=== PATIENT | female | born 1950 | race Caucasian/White ===

== ENCOUNTER 2020-04-26 16:51 | Emergency (ER) | payer BC, MEDICARE ==
--- NOTE | 2020-04-26 17:19 | ER Document Report ---
ED Medical Screen (RME) - General Chief Complaint: Arm Injury Stated Complaint: FALL/LEFT ARM PAIN Time Seen by Provider: 04/26/20 17:07 Mode of Arrival: Wheelchair Information source: Patient Notes: 69-year-old female presents to ED for complaint of pain to the left upper and lower arm and elbow since she fell about 2:00. She states she was trying to walk inside to her daughter's house when she tripped over the threshold of the house landing on her arm. States if she keeps her arm still the pain is about a 2/5 but at times it has a spasm that is a 4/5. She states it is throbbing. Tico samuel is alert oriented respirations regular nonlabored speaking in full sentences. She has no tenderness to palpation to her shoulder. She states it hurts her upper arm elbow and lower arm when she moves her shoulder but there is no tenderness to the shoulder. She does have pain with any movement to the arm. Constitutional: Negative for fever. HENT: Negative for sore throat. Eyes: Negative for visual changes. Cardiovascular: Negative for chest pain. Respiratory: Negative for shortness of breath. Gastrointestinal: Negative for abdominal pain, vomiting or diarrhea. Genitourinary: Negative for dysuria. Musculoskeletal: Pain to the left upper and lower arm as well as the left elbow. Pain with any movement to this arm. No pain to the shoulder Skin: Negative for rash. Neurological: Negative for headaches, weakness or numbness. 10 point ROS negative except as marked above and in HPI. PHYSICAL EXAMINATION: GENERAL: Well-appearing, well-nourished and in no acute distress. HEAD: Atraumatic, normocephalic. EYES: Pupils equal round extraocular movements intact, conjunctiva are normal. ENT: Nares patent NECK: Normal range of motion LUNGS: No respiratory distress Musculoskeletal: Pain with any movement to the left elbow or arm. Has tenderness to the upper and lower arm as well as the elbow. NEUROLOGICAL: Normal speech, normal gait. PSYCH: Normal mood, normal affect. SKIN: Warm, Dry, normal turgor, no rashes or lesions noted. - HPI Onset: This afternoon Onset/Duration: Sudden, Persistent Quality of pain: Throbbing Severity: Moderate Pain Level: 2 - 2 at this moment goes up to 4 times Exacerbated by: Movement Relieved by: Denies Similar symptoms previously: No Recently seen / treated by doctor: No - Related Data Smoking: Non-smoker Frequency of alcohol use: None Drug Abuse: None Allergies/Adverse Reactions: codeine Allergy (Verified 04/26/20 17:12) morphine Allergy (Verified 04/26/20 17:12) Past Medical History - General Information source: Patient - Social History Chew tobacco use (# tins/day): No Frequency of alcohol use: None Drug Abuse: None - Past Medical History Cardiac Medical History: Reports: Hx Hypertension Pulmonary Medical History: Reports: None EENT Medical History: Reports: None Neurological Medical History: Reports: None Endocrine Medical History: Reports: None Renal/ Medical History: Reports: None Malignancy Medical History: Reports: Hx Breast Cancer - With neuropathy right GI Medical History: Reports: None Musculoskeltal Medical History: Reports Hx Arthritis - Rheumatoid, Reports Hx Musculoskeletal Trauma Skin Medical History: Reports None Psychiatric Medical History: Reports: None Traumatic Medical History: Reports: Hx Fractures - Wrist Infectious Medical History: Reports: None Past Surgical History: Reports: Hx Breast Surgery - Right mastectomy, Hx Hysterectomy - Immunizations Immunizations up to date: Yes Physical Exam - Vital signs Vitals: Temp Pulse Resp BP Pulse Ox 98.2 F 67 16 171/85 H 97 04/26/20 16:58 04/26/20 16:58 04/26/20 16:58 04/26/20 16:58 04/26/20 16:58 Course - Vital Signs Vital signs: Temp Pulse Resp BP Pulse Ox 98.2 F 67 16 171/85 H 97 04/26/20 16:58 04/26/20 16:58 04/26/20 16:58 04/26/20 16:58 04/26/20 16:58
[2020-04-26] MEDS ORDERED: HYDROMORPHONE HCL INJ/PF 2 MG/ML AMPULE IV ONE (17:50)
[2020-04-26] MEDS ORDERED: ONDANSETRON HCL INJ/PF 4 MG/2 ML SDV IV ONE (17:50)
--- NOTE | 2020-04-26 18:26 | ER Document Report ---
ED Fall - General Chief Complaint: Arm Injury Stated Complaint: FALL/LEFT ARM PAIN Time Seen by Provider: 04/26/20 17:07 Mode of Arrival: Ambulatory Information source: Patient Notes: This 69-year-old woman presents to the emergency department with a history of injury to the left upper arm. Apparently she was entering the doorway when she tripped and fell forward onto the left arm. She denies head injury or other associated injuries. Patient is here visiting a friend from [place] and has a allergy to codeine and morphine. He has a history of hypertension she of diabetes mellitus. - Related data Allergies/Adverse Reactions: codeine Allergy (Verified 04/26/20 17:12) morphine Allergy (Verified 04/26/20 17:12) Past Medical History - General Information source: Patient - Social History Smoking Status: Unknown if Ever Smoked Chew tobacco use (# tins/day): No Frequency of alcohol use: None Drug Abuse: None Family History: Reviewed & Not Pertinent Patient has homicidal ideation: No - Past Medical History Cardiac Medical History: Reports: Hx Hypertension Pulmonary Medical History: Reports: None EENT Medical History: Reports: None Neurological Medical History: Reports: None Endocrine Medical History: Reports: None Renal/ Medical History: Reports: None Malignancy Medical History: Reports: Hx Breast Cancer - With neuropathy right GI Medical History: Reports: None Musculoskeletal Medical History: Reports Hx Arthritis - Rheumatoid, Reports Hx Musculoskeletal Trauma Skin Medical History: Reports None Psychiatric Medical History: Reports: None Traumatic Medical History: Reports: Hx Fractures - Wrist Infectious Medical History: Reports: None Past Surgical History: Reports: Hx Breast Surgery - Right mastectomy, Hx Hysterectomy - Immunizations Immunizations up to date: Yes Review of Systems - Review of Systems Notes: Constitutional: Negative for fever. HENT: Negative for sore throat. Eyes: Negative for visual changes. Cardiovascular: Negative for chest pain. Respiratory: Negative for shortness of breath. Gastrointestinal: Negative for abdominal pain, vomiting or diarrhea. Genitourinary: Negative for dysuria. Musculoskeletal: + Left arm pain, + left arm deformity Skin: Negative for rash. Neurological: Negative for headaches, weakness or numbness. 10 point ROS negative except as marked above and in HPI. Physical Exam - Vital signs Vitals: Temp Pulse Resp BP Pulse Ox 98.2 F 67 16 171/85 H 97 04/26/20 16:58 04/26/20 16:58 04/26/20 16:58 04/26/20 16:58 04/26/20 16:58 Course - Re-evaluation Re-evalutation: 04/26/20 18:58 I discussed the patient with the orthopedist on-call Dr. Ponce, he has suggested a long arm splint and placed in a sling. I have explained the patient is hoping to go back to [place] for orthopedic care. Dr. Ponce states that it is okay to wait for a week or so. Talk with the patient and explained to her that we have placed her in a splint and sling and she will be given prescriptions for pain medications and that she can follow-up with her orthopedist as an outpatient. - Vital Signs Vital signs: Temp Pulse Resp BP Pulse Ox 98.1 F 83 12 146/92 H 100 04/26/20 20:27 04/26/20 20:27 04/26/20 20:27 04/26/20 20:27 04/26/20 20:27 - Diagnostic Test Radiology reviewed: Image reviewed, Reports reviewed Radiology results interpreted by me: 04/26/20 18:57 Elbow X-Ray 04/26/20 17:14 IMPRESSION: Acute spiral fracture through the distal humeral metaphysis. Associated soft tissue swelling. Forearm X-Ray 04/26/20 17:14 IMPRESSION: Acute spiral fracture through the distal humeral metaphysis. Associated soft tissue swelling. Humerus X-Ray 04/26/20 17:14 IMPRESSION: Acute spiral fracture through the distal humeral metaphysis. Associated soft tissue swelling. Procedures - Immobilization Left Upper Arm Time completed: 19:40 Pre-Proc Neuro Vasc Exam: Normal Immobilizer type: Long arm posterior Performed by: Provider, Other - Medical Assistants Post-Proc Neuro Vasc Exam: Normal Alignment checked and good: No Discharge - Discharge Clinical Impression: Fracture of humerus, distal, left, closed Qualifiers: Encounter type: initial encounter Fracture morphology: unspecified fracture morphology Qualified Code(s): S42.402A - Unspecified fracture of lower end of left humerus, initial encounter for closed fracture Condition: Good Disposition: HOME, SELF-CARE Additional Instructions: You are seen in the emergency department with a fracture to the left upper arm. You are placed in a sling and splint. Please leave the sling and splint in place. You may use the Scheller for pain. Please begin a stool softener such that you do not get constipation related to the pain medication. Please contact your orthopedist regarding the fracture and plan regarding repair. You may supplement ibuprofen with the pain medication for pain control as needed. If your symptoms are worsening or if you have other concerns you may return to the emergency department for further evaluation and treatment HOME CARE INSTRUCTIONS & INFORMATION: Thank you for choosing us for your medical needs. We hope you're satisfied with the care you received. After you leave, you must properly care for your problem and, at the same time, observe its progress. Any condition can change. Some illnesses can change rapidly over hours or days. If your condition worsens, return to the Emergency Department or see your physician promptly. ABOUT YOUR X-RAYS AND EKG'S: If you had an EKG or X-rays taken, they have been read by the Emergency Physician. The X-rays and EKG's will also be read by a Radiologist or Stock Turner within 24 hours. If discrepancies are noted, you w ill be notified by telephone. Please be certain the ED has a correct telephone number & address where you can be reached. Also, realize that some fractures or abnormalities do not show up on initial X-rays. If your symptoms continue, see your physician. ABOUT YOUR LABORATORY TEST: If you had laboratory tests, the results have been reviewed by the Emergency Physician. Some test results (for example cultures) may not be available for several days. You will be contacted if any test result shows you need additional treatment. Please be certain the ED has a correct telephone number and address where you can be reached. ABOUT YOUR MEDICATIONS: You will receive instructions on how to take your medicine on the prescription label you receive. Additional information may be provided by the Pharmacy. If you have questions afterwards, call the ED for clarification or further instructions. Some prescribed medications may cause drowsiness. Do not perform tasks such as driving a car or operating machinery without consulting your Pharmacist. If you feel you need a refill of pain medication, your condition will need re-evaluation. Please do not call for a refill of any medication. ABOUT YOUR SIGNATURE: Signature of this document acknowledges to followin. Understanding that you received emergency treatment and that you may be released before al medical problems are known or treated. Please be certain the ED has a correct phone number & address where you can be reached. 2. Acknowledgement that you will arrange for follow-up care as recommended. 3. Authorization for the Emergency Physician to provide information to your follow-up Physician in order to maximize your care. AT ANY TIME, IF YOUR SYMPTOMS CHANGE SIGNIFICANTLY OR WORSEN OR YOU DEVELOP NEW SYMPTOMS, RETURN TO THE EMERGENCY DEPARTMENT IMMEDIATELY FOR RE-EVALUATION. OUR GOAL IS TO PROVIDE EXCELLENT MEDICAL CARE! WE HOPE THAT WE HAVE MET YOUR EXPECTATIONS DURING YOUR EMERGENCY DEPARTMENT VISIT AND THAT YOU FEEL YOU HAVE RECEIVED EXCELLENT CARE! Prescriptions: Oxycodone HCl/Acetaminophen [Percocet 5-325 mg Tablet] 1 tab PO Q4H PRN #15 tablet PRN Reason: Ondansetron [Zofran Odt 4 mg Tablet] 1 - 2 tab PO Q4H PRN #15 tab.rapdis PRN Reason: For Nausea/Vomiting
--- NOTE | 2020-04-26 18:36 | RADIOLOGY REPORT (SQ) ---
EXAM DESCRIPTION: FOREARM LEFT; HUMERUS LEFT; ELBOW LEFT OVER 2 VIEWS COMPLETED DATE/TIME: 04/26/2020 5:09 pm REASON FOR STUDY: Fall pain injury pain increases with movement COMPARISON: None. NUMBER OF VIEWS: 8 views TECHNIQUE: AP and lateral views of the humerus, AP and lateral view of the left forearm, and AP, lat eral and oblique views of the left elbow. LIMITATIONS: None. FINDINGS: MINERALIZATION: Normal. BONES: There is an acute spiral fracture through the distal humeral metaphysis with mild displacement approximately 1 cm. Mild overriding of the fracture fragments. No involvement of the articular deepthi face. Normal elbow joint alignment. Proximal radius and ulna are intact. Normal glenohumeral joint alignment. SOFT TISSUES: Soft tissue swelling at the mid humerus. OTHER: No other significant finding. IMPRESSION: Acute spiral fracture through the distal humeral metaphysis. Associated soft tissue swe lling. TECHNICAL DOCUMENTATION: JOB ID: [id number] 2010 [employer]- All Rights Reserved Reading location - IP/workstation name: [email or web address]
--- NOTE | 2020-04-26 18:36 | RADIOLOGY REPORT (SQ) ---
EXAM DESCRIPTION: FOREARM LEFT; HUMERUS LEFT; ELBOW LEFT OVER 2 VIEWS COMPLETED DATE/TIME: 04/26/2020 5:09 pm REASON FOR STUDY: Fall pain injury pain increases with movement COMPARISON: None. NUMBER OF VIEWS: 8 views TECHNIQUE: AP and lateral views of the humerus, AP and lateral view of the left forearm, and AP, lat eral and oblique views of the left elbow. LIMITATIONS: None. FINDINGS: MINERALIZATION: Normal. BONES: There is an acute spiral fracture through the distal humeral metaphysis with mild displacement approximately 1 cm. Mild overriding of the fracture fragments. No involvement of the articular deepthi face. Normal elbow joint alignment. Proximal radius and ulna are intact. Normal glenohumeral joint alignment. SOFT TISSUES: Soft tissue swelling at the mid humerus. OTHER: No other significant finding. IMPRESSION: Acute spiral fracture through the distal humeral metaphysis. Associated soft tissue swe lling. TECHNICAL DOCUMENTATION: JOB ID: [id number] 2010 [employer]- All Rights Reserved Reading location - IP/workstation name: [email or web address]
--- NOTE | 2020-04-26 18:36 | RADIOLOGY REPORT (SQ) ---
EXAM DESCRIPTION: FOREARM LEFT; HUMERUS LEFT; ELBOW LEFT OVER 2 VIEWS COMPLETED DATE/TIME: 04/26/2020 5:09 pm REASON FOR STUDY: Fall pain injury pain increases with movement COMPARISON: None. NUMBER OF VIEWS: 8 views TECHNIQUE: AP and lateral views of the humerus, AP and lateral view of the left forearm, and AP, lat eral and oblique views of the left elbow. LIMITATIONS: None. FINDINGS: MINERALIZATION: Normal. BONES: There is an acute spiral fracture through the distal humeral metaphysis with mild displacement approximately 1 cm. Mild overriding of the fracture fragments. No involvement of the articular deepthi face. Normal elbow joint alignment. Proximal radius and ulna are intact. Normal glenohumeral joint alignment. SOFT TISSUES: Soft tissue swelling at the mid humerus. OTHER: No other significant finding. IMPRESSION: Acute spiral fracture through the distal humeral metaphysis. Associated soft tissue swe lling. TECHNICAL DOCUMENTATION: JOB ID: [id number] 2010 [employer]- All Rights Reserved Reading location - IP/workstation name: [email or web address]
[2020-04-26] MEDS ORDERED: HYDROCODONE/ACETAMINOPHEN 5-325 MG (6 TAB/ER DISP) PO PRN (20:04)
[2020-04-26] MEDS ORDERED: HYDROCODONE/ACETAMINOPHEN 5-325 MG TABLET PO ONE (20:04)
[2020-04-26 20:28] VITALS: BP 146/92
== END 2020-04-26 20:27 | disposition home or self-care (01) ==
LOC: ER 16:51
DX: S42.492A Other displaced fracture of lower end of left humerus, initial encounter for closed fracture (principal); W01.0XXA Fall on same level from slipping, tripping and stumbling without subsequent striking against object, initial encounter; Y93.89 Activity, other specified; Y92.009 Unspecified place in unspecified non-institutional (private) residence as the place of occurrence of the external cause; I10 Essential (primary) hypertension; Z88.6 Allergy status to analgesic agent; Z88.5 Allergy status to narcotic agent
CPT/HCPCS: 99284; 96374; 96375; 73080; 73090; 73060; 29105; J1170; J2405